=== PATIENT | female | born 1930 | race Caucasian/White ===

== ENCOUNTER 2019-06-25 13:14 | Outpatient (CLI) | payer MEDICARE, OTHER ==
--- NOTE | 2019-06-25 15:18 | RAD ---
LUMBAR SPINE FOUR VIEWS: HISTORY: Back pain. FINDINGS: Scoliotic curvature with convexity to the right at the thoracolumbar junction. Moderately severe dege nerative change with loss of disk space and hypertrophic spurring at all levels. Slight anterolisthes is at L4-L5 and at L5-S1. Two adjacent calcifications overly the pelvis, possibly representing a calcified fibroid uterus. The largest of these measures approximately 2.5 cm. 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 POS: [facility]
--- NOTE | 2019-06-25 15:48 | MRI ---
MRI LUMBAR SPINE WITHOUT CONTRAST: INDICATION: Scoliosis. Lumbar pain with lumbar radiculopathy. COMPARISON: No comparison. FINDINGS: There is a scoliotic curvature of the lumbar spine with convexity to the right. Moderate degenerativ e changes are noted throughout with degenerative disk changes at all levels. Degenerative disk and e nd plate signal changes are seen, most prominent at the L2-3 level. At T12-L1, mild disk bulge flattens the thecal sac. Facet hypertrophy. Mild central canal stenosis. At L1-2, slight posterior listhesis. Diffuse disk bulge. Prominent facet hypertrophy. Moderate nery tral canal stenosis. Bilateral foraminal stenosis, severe on the left. At L2-3, mild disk bulge. Facet hypertrophy. Posterior laminectomy change. No significant central canal stenosis. Bilateral foraminal stenosis. At L3-4, mild posterior listhesis. Diffuse disk bulge. Posterior laminectomy change. Facet hypertr ophy. Mild to moderate central canal stenosis. Bilateral foraminal stenosis more severe on the left . At L4-5, there is an anterior listhesis. Diffuse disk bulge. Posterior laminectomy change. Mild ce ntral canal stenosis. Mild bilateral foraminal stenosis. At L5-S1, mild diffuse disk bulge. Posterior laminectomy change. Facet hypertrophy. No significant central canal stenosis. Mild right foraminal stenosis secondary to asymmetric disk-osteophyte compl ex and facet hypertrophy. IMPRESSION: 1. 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 2. Incidentally noted is evidence of a cystic lesion in the lower abdomen to the right impinging on the right kidney. This is incompletely imaged and cannot be definitely characterized. It may repres ent a hepatic cyst. Consider further evaluation with abdominal ultrasound. POS: [facility]
== END 2019-06-25 13:15 | disposition home or self-care (01) ==
LOC: TBSIIMAG 13:14
PROVIDERS: ATTEND Surgery
DX: M47.26 Other spondylosis with radiculopathy, lumbar region (principal); M41.9 Scoliosis, unspecified; M54.5 Low back pain; M48.061 Spinal stenosis, lumbar region without neurogenic claudication; N28.9 Disorder of kidney and ureter, unspecified; Z98.890 Other specified postprocedural states
CPT/HCPCS: 72120; 72148